=== PATIENT | female | born 1955 | race Caucasian/White ===

== ENCOUNTER 2020-07-01 16:07 | Inpatient (IN) | payer MEDICARE, OTHER ==
[~2020-07-01] VITALS: Ht 160 cm; Wt 74.8 kg
[2020-07-01 19:15] VITALS: BP 102/39
[2020-07-01] MEDS ORDERED: Z GUARD REMEDY PASTE 57 GM TUBE TOP PRN (19:30)
[2020-07-01] MEDS ORDERED: PARO-64 PO (20:07)
[2020-07-01] MEDS ORDERED: ACET-2154 PO (20:07)
[2020-07-01] MEDS ORDERED: SENN-261 PO (20:07)
[2020-07-01] MEDS ORDERED: LORA-258 PO (20:07)
[2020-07-01] MEDS ORDERED: SIMV-46 PO (20:07)
[2020-07-01] MEDS ORDERED: ERGO800011 (20:07)
[2020-07-01] MEDS ORDERED: CYCL10TA9 PO (20:07)
[2020-07-01] MEDS ORDERED: LISI-782 PO (20:07)
[2020-07-01] MEDS ORDERED: OXYC5TAB3 PO (20:07)
[2020-07-01] MEDS ORDERED: OMEP40CA13 PO (20:07)
[2020-07-01] MEDS ORDERED: ASPI81TA31 PO (20:07)
[2020-07-01] MEDS ORDERED: ONDA4TAB11 PO (20:07)
[2020-07-01] MEDS ORDERED: BISA10SU61 RC (20:07)
[2020-07-01] MEDS ORDERED: DOCU100C36 PO (20:07)
--- NOTE | 2020-07-02 00:17 | NUR ---
received from [facility] a 64 yr old female with admitting diagnosis of S/P decompression L3_s1 /L3-L4 fusion on 06/27/[address] Suarez.AAOx4 Needs attended. OOB to the BR with walker. Hx of herniated disc, chronic back pain, Osteoarthritis, hyperlipidemia, Lung ca, diverticulitis. Patient also was COVID(+) on 04/19 and PCR (-) on 06/26/20 Lower back dressing clean dry and intact. Refused to have dressing checked for photo. Skin intact. Continent of bowel and bladder. BM(07/01) Patient WBAT. Dr Drummond aware of patient's admission. VSS. Dr Chase also aware. Allergies to Cipro, chlorhexidine. Denies any pain at this time.
[2020-07-02 04:30] VITALS: BP 119/52
--- NOTE | 2020-07-02 06:28 | NUR ---
End of shift notes: Slept well throughout the shift. VSS. Still awaiting for her meds to get reconcile. Dr Drummond texted and called last night for patient's meds reconciliation. Not done yet. gang vibrator operator Nattie aware. OOB to the BR with walker with standby assist. Voiding ok. Will monitor.
[2020-07-02 08:38] VITALS: BP 101/48
[2020-07-02] MEDS ORDERED: ONDANSETRON ODT 4 MG TAB.RAPDIS SL PRN (11:30)
[2020-07-02] MEDS ORDERED: LORAZEPAM 0.5 MG TABLET PO PRN (11:30)
[2020-07-02] MEDS ORDERED: SENNOSIDES 1 TABLET PO PRN (11:30)
[2020-07-02] MEDS ORDERED: OXYCODONE HCL 5 MG TABLET PO PRN (11:30)
[2020-07-02] MEDS ORDERED: CYCLOBENZAPRINE HCL 10 MG TABLET PO PRN (11:30)
[2020-07-02] MEDS ORDERED: BISACODYL 10 MG SUPP.RECT RC PRN (11:30)
[2020-07-02] MEDS: LISINOPRIL 5 MG TABLET PO SCH (12:00)
[2020-07-02] MEDS: ASPIRIN 81 MG TAB.CHEW PO SCH (12:03)
[2020-07-02] MEDS: DOCUSATE SODIUM 100 MG CAPSULE PO PRN ×2 (12:03→17:53)
[2020-07-02 15:32] VITALS: BP 110/52
[2020-07-02] MEDS: ACETAMINOPHEN 325 MG TABLET PO PRN ×2 (15:41→22:52)
[2020-07-02] MEDS: SIMVASTATIN 20 MG TABLET PO SCH (20:23)
[2020-07-02 20:30] VITALS: BP 129/56
[2020-07-03] VITALS (12 sets, daily range): BP systolic 102–128; BP diastolic 48–64
[2020-07-03] MEDS: PANTOPRAZOLE SODIUM 40 MG TABLET.DR PO SCH (06:06)
[2020-07-03 08:15] LABS: BASOPHILS % (AUTO) 0.4 % (0.0-2.0); EOSINOPHILS # (AUTO) 0.1 K/uL (0.0-0.7); EOSINOPHILS % (AUTO) 1.1 % (0.0-7.0); LYMPHOCYTES % (AUTO) 15.8 % (20.5-51.5); MEAN CORPUSCULAR HEMOGLOBIN 28.7 uug (24.7-32.8); MEAN CORPUSCULAR HGB CONC 35 g/dL (32.3-35.6); MEAN CORPUSCULAR VOLUME 83.4 fL (75.5-95.3); MONOCYTES # (AUTO) 0.5 K/uL (2.0-10.0); MONOCYTES % (AUTO) 8.7 % (0.0-11.0); NEUTROPHILS # (AUTO) 4.4 K/uL (1.8-8.9); PLATELET COUNT (AUTO) 217 K/uL (179-408)
[2020-07-03 08:18] LABS: CREATININE 0.6 mg/dL (0.6-1.3); POTASSIUM 3.4 mmol/L (3.5-5.1)
[2020-07-03] MEDS: ASPIRIN 81 MG TAB.CHEW PO SCH (08:37)
[2020-07-03] MEDS: PAROXETINE HCL 20 MG TABLET PO SCH (08:37)
[2020-07-03] MEDS: LISINOPRIL 5 MG TABLET PO SCH ×2 (08:38→08:41)
[2020-07-03] MEDS ORDERED: LISINOPRIL 5 MG TABLET PO SCH (09:00)
[2020-07-03 09:06] LABS: RED BLOOD CELL COUNT(AUTO) 2.34 MIL/uL (3.63-4.92)
[2020-07-03 09:07] LABS: HEMATOCRIT 19.5 % (31.2-41.9); HEMOGLOBIN 6.7 g/dL (10.9-14.3)
--- NOTE | 2020-07-03 10:02 | NUR ---
patient is alert, oriented x4, verbally responsive, no sob, resp even nonlabored, skin warm and dry to touch, saturating 95% at room air, able to tolerate ambulating to the bathroom with fww with stand by assist, however patient complained feeling too tired after physical therapy yesterday. no acute distress noted at this time.
[2020-07-03 10:45] LABS: EOSINOPHILS % (MANUAL) 2 % (0-8); LYMPHOCYTES % (MANUAL) 12 % (20-40); MONOCYTES % (MANUAL) 11 % (2-10); NEUTROPHILS % (MANUAL) 75 % (42-75)
[2020-07-03 11:23] LABS: *BILIRUBIN,URIN NEGATIVE (NEGATIVE); *BLOOD, URINE TRACE (NEGATIVE); *CLARITY,URINE CLEAR (CLEAR); *COLOR,URINE YELLOW (YELLOW); *KETONES,URINE NEGATIVE (NEGATIVE); LEUKOCYTE ESTERASE ,URINE NEGATIVE (NEGATIVE); NITRITE, URINE NEGATIVE (NEGATIVE); PH,URINE 7.5 (5.0-8.0); UGLUCOSE NEGATIVE (NEGATIVE)
[2020-07-03 11:33] LABS: RBC,URINE 0-3 /HPF (0-3); SQUAMOUS EPITHELIAL CELL,UR MANY /HPF (NONE SEEN); URINE AMORPHOUS PHOSPHATES MANY /HPF
[2020-07-03 11:34] LABS: BACTERIA,URINE MODERATE /HPF (NONE SEEN); MUCUS,URINE FEW /LPF (0-FEW)
[2020-07-03 12:05] LABS: HEMATOCRIT 20.3 % (31.2-41.9)
--- NOTE | 2020-07-03 13:00 | NUR ---
patient noted with pitting edema to both feet +3 pitting edema, dr rice is aware, encouraged to elevate legs as tolerated, will continue to monitor
--- NOTE | 2020-07-03 13:30 | NUR ---
patient gets on and off low grade temperature 99.[address] krystal garcia to transfuse blood.
--- NOTE | 2020-07-03 14:44 | NUR ---
patient is alert, oriented x4, gave the consent for blood transfusion, daughter Jackie made aware as well, daughter and patient both agreed for blood transfusion
--- NOTE | 2020-07-03 15:00 | NUR ---
patient is alert, oriented x4, no sob, resp even nonlabored, skin warm and dry to touch, patient denied any flank pain, denied itching, or any other symptoms, continue to monitor closely
--- NOTE | 2020-07-03 15:57 | NUR ---
patient is tolerating blood transfusing well, no crackles noted upon auscultation, patient denied any pain or itching, no sob, resp even nonlabored, no distress noted
[2020-07-03] MEDS ORDERED: POTASSIUM CHLORIDE 10 MEQ TAB.PRT.SR PO ONE (18:00)
[2020-07-03] MEDS: SIMVASTATIN 20 MG TABLET PO SCH (20:38)
--- NOTE | 2020-07-03 21:20 | NUR ---
Received pt resting in bed. AAO x4. No acute distress noted. Denies pain/ discomfort. Due med given as ordered. Assisted to the bathroom using walker, safely back in bed. Left wrist #20 IV hep lock, patent and intact. Safety measures maintained. Call light and personal items within reach. Will continue to monitor.
[2020-07-04 04:50] VITALS: BP 111/60
[2020-07-04] MEDS: PANTOPRAZOLE SODIUM 40 MG TABLET.DR PO SCH (06:07)
[2020-07-04 06:34] LABS: BASOPHILS % (AUTO) 0.5 % (0.0-2.0); EOSINOPHILS # (AUTO) 0.1 K/uL (0.0-0.7); EOSINOPHILS % (AUTO) 2.5 % (0.0-7.0); HEMATOCRIT 23.4 % (31.2-41.9); HEMOGLOBIN 7.8 g/dL (10.9-14.3); LYMPHOCYTES # (AUTO) 1.1 K/uL (20.0-40.0); LYMPHOCYTES % (AUTO) 20.3 % (20.5-51.5); MEAN CORPUSCULAR HGB CONC 34 g/dL (32.3-35.6); MEAN CORPUSCULAR VOLUME 83.5 fL (75.5-95.3); MONOCYTES # (AUTO) 0.6 K/uL (2.0-10.0); MONOCYTES % (AUTO) 12.1 % (0.0-11.0); NEUTROPHILS # (AUTO) 3.3 K/uL (1.8-8.9); NEUTROPHILS % (AUTO) 64.6 % (38.5-71.5); PLATELET COUNT (AUTO) 235 K/uL (179-408); WHITE BLOOD COUNT (AUTO) 5.2 K/uL (3.8-11.8)
[2020-07-04 06:48] LABS: CREATININE 0.6 mg/dL (0.6-1.3); MAGNESIUM 2.2 mg/dL (1.8-2.4); PHOSPHOROUS 2.7 mg/dL (2.5-4.9); POTASSIUM 4.1 mmol/L (3.5-5.1)
[2020-07-04 08:00] VITALS: BP 126/67
[2020-07-04] MEDS: PAROXETINE HCL 20 MG TABLET PO SCH (08:39)
[2020-07-04] MEDS: LISINOPRIL 5 MG TABLET PO SCH (08:40)
[2020-07-04] MEDS: ASPIRIN 81 MG TAB.CHEW PO SCH (08:40)
[2020-07-04 14:05] LABS: IRON, SERUM 9 ug/dL (50-175)
[2020-07-04 15:47] VITALS: BP 117/56
--- NOTE | 2020-07-04 18:30 | NUR ---
INDIVIDUALIZED PLAN OF CARE
--- NOTE | 2020-07-04 18:44 | NUR ---
urine culture result reported to dr rice, no orders for now, since patient is asymptomatic, no hematuria, patient denied any burning sensations, dysuria. started on ferrous sulphate as ordered.
--- NOTE | 2020-07-04 19:22 | NUR ---
incision site is clean and dry.
[2020-07-04 20:35] VITALS: BP 141/66
--- NOTE | 2020-07-04 21:38 | NUR ---
Received patient sitting in bed. Assisted to the bathroom using walker, safely assist back in bed AAO x4. No acute distress noted. Denies pain/ discomfort. Due med administered as ordered. Safety measures observed and maintained all time. Call light and personal items within reach. Will continue to monitor.
[2020-07-04] MEDS: SIMVASTATIN 20 MG TABLET PO SCH (21:46)
[2020-07-04] MEDS: FERROUS SULFATE 325 MG TABEC PO SCH (21:47)
[2020-07-05 05:22] VITALS: BP 121/66
--- NOTE | 2020-07-05 06:02 | NUR ---
Patient slept throughout the night comfortable, VSS, stand by seo assistant to bathroom with walker. Continue with current plan of care. Will endorse accordingly to AM shift
[2020-07-05] MEDS: PANTOPRAZOLE SODIUM 40 MG TABLET.DR PO SCH (06:26)
[2020-07-05 08:00] VITALS: BP 139/69
[2020-07-05] MEDS: FERROUS SULFATE 325 MG TABEC PO SCH ×2 (08:35→20:17)
[2020-07-05] MEDS: ASPIRIN 81 MG TAB.CHEW PO SCH (08:35)
[2020-07-05] MEDS: PAROXETINE HCL 20 MG TABLET PO SCH (08:36)
[2020-07-05] MEDS: LISINOPRIL 5 MG TABLET PO SCH (08:36)
--- NOTE | 2020-07-05 08:43 | NUR ---
Received pt sitting up in chair, A&Ox4, able to verbalize needs. No acute distress, no SOB. VSS at this time. Pt denies pain/discomfort at this time. Pt noted drinking water, tolerated well. Due medications given per order. Belongings and call light within reach, reinforced usage, pt verbalized understanding. Will continue to monitor.
[2020-07-05 09:33] LABS: BASOPHILS % (AUTO) 0.6 % (0.0-2.0); EOSINOPHILS # (AUTO) 0.1 K/uL (0.0-0.7); EOSINOPHILS % (AUTO) 2.6 % (0.0-7.0); HEMATOCRIT 25.9 % (31.2-41.9); HEMOGLOBIN 8.6 g/dL (10.9-14.3); LYMPHOCYTES % (AUTO) 21.8 % (20.5-51.5); MEAN CORPUSCULAR HEMOGLOBIN 27.9 uug (24.7-32.8); MEAN CORPUSCULAR HGB CONC 33 g/dL (32.3-35.6); MEAN CORPUSCULAR VOLUME 84.3 fL (75.5-95.3); MONOCYTES # (AUTO) 0.3 K/uL (2.0-10.0); MONOCYTES % (AUTO) 6.9 % (0.0-11.0); NEUTROPHILS % (AUTO) 68.1 % (38.5-71.5); PLATELET COUNT (AUTO) 313 K/uL (179-408); RED BLOOD CELL COUNT(AUTO) 3.08 MIL/uL (3.63-4.92); WHITE BLOOD COUNT (AUTO) 4.4 K/uL (3.8-11.8)
[2020-07-05 09:44] LABS: POTASSIUM 3.5 mmol/L (3.5-5.1)
[2020-07-05 09:49] LABS: CREATININE 0.7 mg/dL (0.6-1.3)
[2020-07-05] MEDS ORDERED: CEFTRIAXONE 1 G in IV DEXTROSE 5% 50 ML IV SCH (10:30)
--- NOTE | 2020-07-05 12:30 | NUR ---
Dr. Germain aware of pt's UA and UC results, per Dr. Germain, no treatment at this time as pt remains asymptomatic. Notified JUDICIAL CLERK Wade Santiago, who is in agreement at this time.
--- NOTE | 2020-07-05 13:31 | NUR ---
Pt's own medication found in room, Premarin vaginal cream. Medication put in pt's own medication enveloped and given to pharmacy. Dr. Germain made aware, per MD OK for pt to continue home medication.
[2020-07-05 14:00] VITALS: BP 117/66
[2020-07-05 20:08] VITALS: BP 135/58
[2020-07-05] MEDS: SIMVASTATIN 20 MG TABLET PO SCH (20:17)
--- NOTE | 2020-07-06 01:15 | NUR ---
Received pt resting in chair. AAO x4, able to make needs known. No acute distress noted. Denies pain/ discomfort. VSS. All due medications administered as scheduled and tolerated well. Assisted pt to the bathroom and back into bed. given as ordered. Safety precautions maintained. Needs attended to promptly. Incision intact and open to air. Call light and personal items within reach. Will continue to monitor throughout the night.
[2020-07-06 04:24] VITALS: BP 137/65
[2020-07-06] MEDS: PANTOPRAZOLE SODIUM 40 MG TABLET.DR PO SCH (06:01)
[2020-07-06 07:56] VITALS: BP 126/58
[2020-07-06] MEDS: FERROUS SULFATE 325 MG TABEC PO SCH ×2 (08:02→20:14)
[2020-07-06] MEDS: ASPIRIN 81 MG TAB.CHEW PO SCH (08:02)
[2020-07-06] MEDS: LISINOPRIL 5 MG TABLET PO SCH (08:02)
[2020-07-06] MEDS: PAROXETINE HCL 20 MG TABLET PO SCH (08:02)
[2020-07-06] MEDS: CALCIUM CARBONATE 500 MG TABLET PO SCH (08:02)
[2020-07-06 15:00] VITALS: BP 142/73
[2020-07-06 20:05] VITALS: BP 103/61
[2020-07-06] MEDS: SIMVASTATIN 20 MG TABLET PO SCH (20:14)
--- NOTE | 2020-07-06 21:15 | NUR ---
Patient awake in bed. c/o pain on the left side of incision area. Incision area, c/d/i. Patient given tylenol 650mg po prn for discomfort. Patient stated she feels like she over-worked herself in physical therapy today. Call light in reach, all needs attended. Will continue to monitor and assess.
[2020-07-06] MEDS: ACETAMINOPHEN 325 MG TABLET PO PRN (21:18)
[2020-07-07 04:33] VITALS: BP 121/60
[2020-07-07] MEDS: PANTOPRAZOLE SODIUM 40 MG TABLET.DR PO SCH (06:25)
--- NOTE | 2020-07-07 06:25 | NUR ---
Patient asleep in bed. Pt. asked not be woken up to be to be given Protonix. Will endorse to am shift. Pt. slept well throughout the night. All needs attended, will continue to monitor and assess.
[2020-07-07 07:58] VITALS: BP 128/68
[2020-07-07] MEDS: PAROXETINE HCL 20 MG TABLET PO SCH (08:27)
[2020-07-07] MEDS: ASPIRIN 81 MG TAB.CHEW PO SCH (08:27)
[2020-07-07] MEDS: CALCIUM CARBONATE 500 MG TABLET PO SCH (08:27)
[2020-07-07] MEDS: FERROUS SULFATE 325 MG TABEC PO SCH ×2 (08:27→20:09)
[2020-07-07] MEDS: LISINOPRIL 5 MG TABLET PO SCH (08:28)
--- NOTE | 2020-07-07 09:40 | NUR ---
Received pt in restroom, pt stated had 1 BM. Assisted pt safely to chair for breakfast. Pt A&Ox4. No acute distress, no SOB. VSS. Pt denies pain/discomfort at this time. Due medications given per order, no a/r noted. Pt declined Protonix today, per pt, "tomorrow". Safety measures and fall precautions in place. Belongings and call light within reach. Will continue to monitor.
--- NOTE | 2020-07-07 10:00 | NUR ---
Pt's own medication found at bedside, Refresh Artificial Tears. Explained hospital policy to pt, pt verbalized understanding, medication removed and given to pharmacy. Dr. Reyes ARAMBULA made aware of pt's request to continue home medication, MD in agreement, new order in place. Continue to monitor.
[2020-07-07] MEDS: PREMARIN VAG VG PRN ×2 (11:16→20:11)
[2020-07-07 12:45] VITALS: BP 117/71
--- NOTE | 2020-07-07 12:45 | NUR ---
Pt stated feeling tired and somewhat weak, per pt she may have "overworked" herself at therapy yesterday. Pt requested vital signs taken, respected pt's request, VSS: BP 117/71, HR 85, O2 saturation 100% on RA, RR 18, temp 98.4. Pt denied pain at this time. Pt denied dizziness, lightheadedness, headache. Dr Dave at bedside, no new orders. Will continue to monitor.
[2020-07-07 15:05] VITALS: BP 109/51
--- NOTE | 2020-07-07 17:03 | NUR ---
Pt stated feeling "better" at this time. VSS. No acute distress, no SOB. Pt continues to deny pain, declines pain medication at this time. Assisted pt safely to chair. LSO brace in place when pt OOB. Per pt, she is ready for dinner.
--- NOTE | 2020-07-07 18:39 | NUR ---
EOSS: Pt in room, talking on phone, no acute distress. VSS. Pt denies pain/discomfort. All needs met at this time. Due medications given per order, no a/r noted. Safety measures and fall precautions maintained. Call light and belongings within reach. Pt asks not to be woken up for am Protonix until after 0700. Will endorse to director of outside sales nurse.
[2020-07-07] MEDS: SIMVASTATIN 20 MG TABLET PO SCH (20:10)
[2020-07-07 20:34] VITALS: BP 139/55
[2020-07-08 04:30] VITALS: BP 115/59
[2020-07-08] MEDS: PANTOPRAZOLE SODIUM 40 MG TABLET.DR PO SCH (06:14)
[2020-07-08 07:11] LABS: BASOPHILS # (AUTO) 0.1 K/uL (0.0-8.0); EOSINOPHILS # (AUTO) 0.1 K/uL (0.0-0.7); HEMATOCRIT 25.7 % (31.2-41.9); HEMOGLOBIN 8.6 g/dL (10.9-14.3); LYMPHOCYTES # (AUTO) 1.2 K/uL (20.0-40.0); LYMPHOCYTES % (AUTO) 21.6 % (20.5-51.5); MEAN CORPUSCULAR HEMOGLOBIN 27.8 uug (24.7-32.8); MEAN CORPUSCULAR HGB CONC 34 g/dL (32.3-35.6); MEAN CORPUSCULAR VOLUME 83.2 fL (75.5-95.3); MONOCYTES # (AUTO) 0.6 K/uL (2.0-10.0); MONOCYTES % (AUTO) 10.5 % (0.0-11.0); NEUTROPHILS # (AUTO) 3.5 K/uL (1.8-8.9); NEUTROPHILS % (AUTO) 64.9 % (38.5-71.5); PLATELET COUNT (AUTO) 361 K/uL (179-408); RED BLOOD CELL COUNT(AUTO) 3.09 MIL/uL (3.63-4.92); WHITE BLOOD COUNT (AUTO) 5.4 K/uL (3.8-11.8)
[2020-07-08 07:29] LABS: THYROID STIMULATING HORMONE 1.473 mIU/mL (0.358-3.740)
[2020-07-08 08:00] VITALS: BP 126/67
[2020-07-08 08:08] LABS: BILIRUBIN,TOTAL 0.2 mg/dL (0.2-1.0); CREATININE 0.6 mg/dL (0.6-1.3); MAGNESIUM 2.3 mg/dL (1.8-2.4); PHOSPHOROUS 3.7 mg/dL (2.5-4.9); POTASSIUM 4.2 mmol/L (3.5-5.1); TOTAL PROTEIN, SERUM 6.2 g/dL (6.4-8.2)
[2020-07-08] MEDS: PAROXETINE HCL 20 MG TABLET PO SCH (09:01)
[2020-07-08] MEDS: ASPIRIN 81 MG TAB.CHEW PO SCH (09:01)
[2020-07-08] MEDS: FERROUS SULFATE 325 MG TABEC PO SCH ×2 (09:01→20:24)
[2020-07-08] MEDS: CALCIUM CARBONATE 500 MG TABLET PO SCH (09:01)
[2020-07-08] MEDS: LISINOPRIL 5 MG TABLET PO SCH (09:02)
[2020-07-08] MEDS: PREMARIN VAG VG PRN (09:03)
--- NOTE | 2020-07-08 09:34 | NUR ---
Received pt ambulating back from restroom, assisted pt safely to edge of bed for breakfast. Pt A&Ox4, able to verbalize needs. No acute distress. VSS. Pt denies pain at this time. Due medications given per order, no a/r noted. Pt stated feeling "much better" this am. Safety measures and fall precautions in place. Belongings and call light within reach. Will continue to monitor.
--- NOTE | 2020-07-08 12:05 | NUR ---
DONALDO Santiago at bedside, reviewed labs, no new orders at this time. Continue to monitor.
[2020-07-08 16:00] VITALS: BP 115/64
--- NOTE | 2020-07-08 19:35 | NUR ---
In bed, awake, alert and oriented x 3, very pleasant, calm, and cooperative. Ambulatory to the BR with FWW with minimal assist. Mid back incision site clean and dry, left open to air. No complaint presented at this time. Continue care as planned.
--- NOTE | 2020-07-08 19:39 | NUR ---
INTERDISCIPLINARY TEAM CONFERENCE
[2020-07-08 20:00] VITALS: BP 103/53
[2020-07-08] MEDS: SIMVASTATIN 20 MG TABLET PO SCH (20:24)
[2020-07-09 04:00] VITALS: BP 132/63
--- NOTE | 2020-07-09 05:44 | NUR ---
Shift End Report: VS stable. Slept well. All needs attended and met. No complaint presented. No significant event reported all night. Continue current rehab plan of care.
[2020-07-09] MEDS: PANTOPRAZOLE SODIUM 40 MG TABLET.DR PO SCH (06:40)
[2020-07-09 08:33] VITALS: BP 108/65
[2020-07-09] MEDS: FERROUS SULFATE 325 MG TABEC PO SCH ×2 (08:35→20:04)
[2020-07-09] MEDS: PAROXETINE HCL 20 MG TABLET PO SCH (08:35)
[2020-07-09] MEDS: CALCIUM CARBONATE 500 MG TABLET PO SCH (08:35)
[2020-07-09] MEDS: ASPIRIN 81 MG TAB.CHEW PO SCH (08:35)
[2020-07-09] MEDS: LISINOPRIL 5 MG TABLET PO SCH (08:35)
[2020-07-09 16:00] VITALS: BP 124/60
--- NOTE | 2020-07-09 19:35 | NUR ---
Ambulating to the bathroom with FWW during initial rounds. No SOB/SOBOE presented. Presented complaint that Left leg still with on and off numbness and that MD already aware and told her that it will go away as days goes on. Lower back incision dry and intact, left open to air. Safety measures and fall prevention maintained. Continue care as planned.
[2020-07-09 20:00] VITALS: BP 113/58
[2020-07-09] MEDS: SIMVASTATIN 20 MG TABLET PO SCH (20:04)
[2020-07-10 04:00] VITALS: BP 118/62
[2020-07-10] MEDS: PANTOPRAZOLE SODIUM 40 MG TABLET.DR PO SCH (06:22)
--- NOTE | 2020-07-10 06:31 | NUR ---
Shift End Report: Uneventful night. No significant changes reported. All needs attended and met. VS stable.
--- NOTE | 2020-07-10 07:30 | NUR ---
received patient aox4, patient is sitting in her bed, patient cheerful mood, denies pain, no sign of any distress, patient seen eating her breakfast and able to tolerate her medication and therapy, will continue monitor
[2020-07-10 08:00] VITALS: BP 122/62
[2020-07-10] MEDS: ASPIRIN 81 MG TAB.CHEW PO SCH (08:28)
[2020-07-10] MEDS: FERROUS SULFATE 325 MG TABEC PO SCH ×2 (08:29→20:51)
[2020-07-10] MEDS: CALCIUM CARBONATE 500 MG TABLET PO SCH (08:29)
[2020-07-10] MEDS: PAROXETINE HCL 20 MG TABLET PO SCH (08:29)
[2020-07-10] MEDS: LISINOPRIL 5 MG TABLET PO SCH (08:29)
[2020-07-10 15:36] VITALS: BP 124/59
--- NOTE | 2020-07-10 18:57 | NUR ---
pt a/o x4, on room air, no signs of distress, no reports fo pain noted at this time. pt ambulatory with walker, pt has BRP, pt on cardiac diet, pt has appt with Dr. Suarez 07/14/2020. bed in low and locked position, call light within reach, safety precautions in place, will endorse to oncoming nurse.
--- NOTE | 2020-07-10 20:15 | NUR ---
Patient alert x4. Denies pain at this time. On RA.No s/s of distress noted. Ambulates to bathroom with the use of walker.Applied back brace.Tolerated well.Lower back Surgical site clean and dry.No drainage noted. Call light with in reach.Continue safety measures. VSs.
[2020-07-10 20:25] VITALS: BP 117/68
[2020-07-10] MEDS: SIMVASTATIN 20 MG TABLET PO SCH (20:52)
[2020-07-11 05:42] VITALS: BP 113/59
[2020-07-11] MEDS: PANTOPRAZOLE SODIUM 40 MG TABLET.DR PO SCH (06:21)
--- NOTE | 2020-07-11 07:20 | NUR ---
Received sitting on the chair, c/o of some leg pain stated she may have overdone it at therapy yesterday. No resp distress noted. Said pain is manageable at this time and will let nurse know if she needs pain pill. Patient is cooperative. Will continue to monitor.
[2020-07-11 08:00] VITALS: BP 127/44
[2020-07-11] MEDS: ASPIRIN 81 MG TAB.CHEW PO SCH (08:09)
[2020-07-11] MEDS: PAROXETINE HCL 20 MG TABLET PO SCH (08:09)
[2020-07-11] MEDS: CALCIUM CARBONATE 500 MG TABLET PO SCH (08:09)
[2020-07-11] MEDS: FERROUS SULFATE 325 MG TABEC PO SCH ×2 (08:09→20:11)
[2020-07-11] MEDS: LISINOPRIL 5 MG TABLET PO SCH (08:11)
[2020-07-11] MEDS: ACETAMINOPHEN 325 MG TABLET PO PRN ×2 (08:16→23:05)
--- NOTE | 2020-07-11 09:35 | NUR ---
Patient given tylenol per request verbalized relief. Said she'll take it easy today refused therapy.
--- NOTE | 2020-07-11 11:27 | NUR ---
Patient requested for air mattress. Informed Dr. Chambers he said ok, noted and carried out. Patient aware. Addendum: 07/11/20 at 1131 by RICHI LUQUE RN Noted spine surgical site intact. No signs of redness, swelling or infection noted. Denies pain.
[2020-07-11 16:00] VITALS: BP 136/73
--- NOTE | 2020-07-11 19:00 | NUR ---
Patient sitting in chair. No resp distress. No further complaints of pain. Showered with OT this afternoon. Spine surgical site intact. No swelling or redness noted. Patient is cooperative. Needs attended. Safety measures in place. Call light within reach.
--- NOTE | 2020-07-11 19:30 | NUR ---
Received pt laying in bed, A&Ox4, verbally responsive, able to make needs known. Denies any pain or discomfort. No s/s of respiratory distress. Safety measures initiated, call light within reach, will continue to monitor.
[2020-07-11 19:49] VITALS: BP 110/64
[2020-07-11] MEDS: SIMVASTATIN 20 MG TABLET PO SCH (20:11)
[2020-07-12 05:20] VITALS: BP 101/56
--- NOTE | 2020-07-12 06:28 | NUR ---
Pt asleep in bed, easily arousable to name. No signs of respiratory distress. Pain medication given as needed. Medications tolerated well. Incision site intact, no s/s of infection. Pt aware of occult blood stool test, no stool sample given yet. Will endorse to day shift nurse. Safety measures maintained at all times, call light within reach, all needs attended.
[2020-07-12] MEDS: PANTOPRAZOLE SODIUM 40 MG TABLET.DR PO SCH (07:16)
--- NOTE | 2020-07-12 07:24 | NUR ---
Patient received sitting on the chair praying. Alert and oriented able to make needs known. C/o slight pain on left leg but is manageable and refused pain medication at this time. Sx site intact. No s/sx of swelling or infection. Call light in reach. Will continue to monitor.
[2020-07-12] MEDS: FERROUS SULFATE 325 MG TABEC PO SCH ×2 (08:08→20:04)
[2020-07-12] MEDS: PAROXETINE HCL 20 MG TABLET PO SCH (08:08)
[2020-07-12] MEDS: LISINOPRIL 5 MG TABLET PO SCH (08:08)
[2020-07-12] MEDS: ASPIRIN 81 MG TAB.CHEW PO SCH (08:08)
[2020-07-12 08:09] VITALS: BP 107/62
[2020-07-12] MEDS: CALCIUM CARBONATE 500 MG TABLET PO SCH (08:11)
[2020-07-12 09:14] LABS: *OCCULT BLOOD STOOL NEGATIVE (NEGATIVE)
[2020-07-12 15:42] VITALS: BP 11/64
[2020-07-12 18:46] LABS: *BILIRUBIN,URIN NEGATIVE (NEGATIVE); *CLARITY,URINE CLEAR (CLEAR); *COLOR,URINE LIGHT YELLOW (YELLOW); *KETONES,URINE NEGATIVE (NEGATIVE); *UROBILINOGEN,URINE 0.2 E.U./dl (NORMAL); LEUKOCYTE ESTERASE ,URINE NEGATIVE (NEGATIVE); NITRITE, URINE NEGATIVE (NEGATIVE); PH,URINE 6.5 (5.0-8.0); UGLUCOSE NEGATIVE (NEGATIVE)
[2020-07-12 18:57] LABS: *BLOOD, URINE TRACE LYSED (NEGATIVE)
--- NOTE | 2020-07-12 19:12 | NUR ---
Alert and oriented, ambulatory. Denies pain. No respiratory distress. Needs attended. Safety measures maintained. Endorsed accordingly.
[2020-07-12 19:34] LABS: BACTERIA,URINE NONE SEEN /HPF (NONE SEEN); SQUAMOUS EPITHELIAL CELL,UR FEW /HPF (NONE SEEN); WBC,URINE 0-3 /HPF (0-3)
[2020-07-12] MEDS: SIMVASTATIN 20 MG TABLET PO SCH (20:04)
[2020-07-12 20:19] VITALS: BP 111/51
[2020-07-13] MEDS: PANTOPRAZOLE SODIUM 40 MG TABLET.DR PO SCH (06:06)
--- NOTE | 2020-07-13 06:25 | NUR ---
Pt slept throughout the night, denies pain or SOB. No acute distress noted. Pt able to ambulate with FWW to bathroom on her own. Bed is locked and in lowest position, call light in reach. Tolerated all given medications. No other issues or concerns at this time, will endorse to day shift.
[2020-07-13 07:30] VITALS: BP 120/64
[2020-07-13] MEDS: LISINOPRIL 5 MG TABLET PO SCH (08:46)
[2020-07-13] MEDS: PAROXETINE HCL 20 MG TABLET PO SCH (08:46)
[2020-07-13] MEDS: ASPIRIN 81 MG TAB.CHEW PO SCH (08:46)
[2020-07-13] MEDS: FERROUS SULFATE 325 MG TABEC PO SCH ×2 (08:46→20:00)
[2020-07-13] MEDS: CALCIUM CARBONATE 500 MG TABLET PO SCH (08:52)
[2020-07-13] MEDS: LIDOCAINE 5% PATCH TD SCH (09:00)
[2020-07-13] MEDS: CELECOXIB 100 MG CAPSULE PO SCH ×2 (09:28→20:00)
--- NOTE | 2020-07-13 18:30 | NUR ---
Patient remains alert, oriented x 4, not in any form of distress, on room air, ambulatory with walker. She denies any pain or discomfort at this time. Assisted with her needs. Call light and frequently used items placed within patient's reach. Patient refused her morning due lidocaine patch as ordered, explained risks and benefits but patient still refused. Will continue to monitor and will endorse accordingly.
[2020-07-13] MEDS: SIMVASTATIN 20 MG TABLET PO SCH (20:00)
[2020-07-13 20:21] VITALS: BP 126/66
--- NOTE | 2020-07-14 05:31 | NUR ---
Pt slept throughout the night. Denies pain or SOB. Refused 0400H vitals, states that she is "healthy." Pt otherwise very pleasant and able to make needs known. Tolerated all medications well. Able to ambulate well with FWW. Scheduled to be picked up today by [facility] at 1345H to go to meet with Dr. Suarez. Bed is locked and in lowest position, call light within reach. No other issues or concerns at this time, will endorse to day shift.
[2020-07-14] MEDS: PANTOPRAZOLE SODIUM 40 MG TABLET.DR PO SCH (06:18)
[2020-07-14 06:26] LABS: BASOPHILS # (AUTO) 0.1 K/uL (0.0-8.0); BASOPHILS % (AUTO) 1.2 % (0.0-2.0); EOSINOPHILS # (AUTO) 0.1 K/uL (0.0-0.7); EOSINOPHILS % (AUTO) 2.4 % (0.0-7.0); HEMATOCRIT 27.7 % (31.2-41.9); HEMOGLOBIN 9.4 g/dL (10.9-14.3); LYMPHOCYTES # (AUTO) 1.3 K/uL (20.0-40.0); LYMPHOCYTES % (AUTO) 25.1 % (20.5-51.5); MEAN CORPUSCULAR HEMOGLOBIN 27.7 uug (24.7-32.8); MEAN CORPUSCULAR HGB CONC 34 g/dL (32.3-35.6); MONOCYTES # (AUTO) 0.5 K/uL (2.0-10.0); MONOCYTES % (AUTO) 10.2 % (0.0-11.0); NEUTROPHILS # (AUTO) 3.1 K/uL (1.8-8.9); NEUTROPHILS % (AUTO) 61.1 % (38.5-71.5); PLATELET COUNT (AUTO) 330 K/uL (179-408); RED BLOOD CELL COUNT(AUTO) 3.38 MIL/uL (3.63-4.92); WHITE BLOOD COUNT (AUTO) 5.1 K/uL (3.8-11.8)
[2020-07-14 06:40] LABS: BILIRUBIN,TOTAL 0.2 mg/dL (0.2-1.0); CREATININE 0.6 mg/dL (0.6-1.3); MAGNESIUM 2.3 mg/dL (1.8-2.4); PHOSPHOROUS 3.9 mg/dL (2.5-4.9); POTASSIUM 4.2 mmol/L (3.5-5.1); TOTAL PROTEIN, SERUM 6.5 g/dL (6.4-8.2)
[2020-07-14] MEDS: CALCIUM CARBONATE 500 MG TABLET PO SCH (09:00)
[2020-07-14] MEDS: LIDOCAINE 5% PATCH TD SCH (09:00)
[2020-07-14] MEDS: ASPIRIN 81 MG TAB.CHEW PO SCH (10:24)
[2020-07-14] MEDS: PAROXETINE HCL 20 MG TABLET PO SCH (10:24)
[2020-07-14] MEDS: FERROUS SULFATE 325 MG TABEC PO SCH ×2 (10:25→20:23)
[2020-07-14] MEDS: CELECOXIB 100 MG CAPSULE PO SCH ×2 (10:26→20:25)
[2020-07-14] MEDS: LISINOPRIL 5 MG TABLET PO SCH (10:32)
--- NOTE | 2020-07-14 13:50 | NUR ---
Patient picked up by [facility] transportation for appointment with Dr. Suarez. Patient is alert, oriented x 4, not in any form of distress, vital signs stable. She denies any pain or discomfort.
--- NOTE | 2020-07-14 15:00 | NUR ---
Patient back from appointment. Patient remains alert, oriented x 3, no complain of any pain or discomfort, vital signs stable. No new skin issues. No new orders from Dr. Suarez.
[2020-07-14] MEDS: ACETAMINOPHEN 325 MG TABLET PO PRN (15:28)
[2020-07-14 15:37] VITALS: BP 122/61
[2020-07-14] MEDS: SIMVASTATIN 20 MG TABLET PO SCH (20:23)
[2020-07-14 21:00] VITALS: BP 114/63
--- NOTE | 2020-07-15 00:44 | NUR ---
aaox4 ambulates with walker. Voiding freely. Needs attended. Kept comfortable. Possible discharge to home in am. VSS. Will monitor patient.
[2020-07-15] MEDS: PANTOPRAZOLE SODIUM 40 MG TABLET.DR PO SCH (06:26)
[2020-07-15 07:32] VITALS: BP 150/82
[2020-07-15] MEDS: ASPIRIN 81 MG TAB.CHEW PO SCH (08:39)
[2020-07-15] MEDS: LISINOPRIL 5 MG TABLET PO SCH (08:40)
[2020-07-15] MEDS: CALCIUM CARBONATE 500 MG TABLET PO SCH ×2 (08:40→08:53)
[2020-07-15] MEDS: FERROUS SULFATE 325 MG TABEC PO SCH (08:40)
[2020-07-15] MEDS: PAROXETINE HCL 20 MG TABLET PO SCH (08:40)
[2020-07-15] MEDS: PREMARIN VAG VG PRN (08:49)
[2020-07-15] MEDS: CELECOXIB 100 MG CAPSULE PO SCH (08:51)
[2020-07-15] MEDS: LIDOCAINE 5% PATCH TD SCH (09:00)
[2020-07-15 13:20] VITALS: BP 117/74
--- NOTE | 2020-07-15 14:41 | NUR ---
Pt A&Ox4, no acute distress, no reports of pain/discomfort at this time, VSS. Pt to be discharged home with [facility] today. Pt aware and willing. Per pt, excited to go home. Belongings inventoried, belongings list signed, pt denied missing items. Per pt, received 2 doses of PNA vaccine, does not recall dates, will follow up with PCP. Per pt, received flu vaccine this season, December 2019.
--- NOTE | 2020-07-15 16:27 | NUR ---
DISCHARGE NOTE: Pt remains in stable condition, no acute distress. All needs attended to. Discharge instructions provided to pt, pt verbalized understanding. Discharge prescriptions and TMS provided to pt. Assisted pt safely to lobby via WC at 1625. Pt picked up via private transportation with son-in-law Bassam. Pt assisted safely into vehicle.
== END 2020-07-15 16:39 | disposition home health service (06) | DRG 559 ==
PROVIDERS: ADMIT Physical Medicine & Rehabilitation Pain Medicine; ATTEND Physical Medicine & Rehabilitation Pain Medicine
DX: Z47.89 Encounter for other orthopedic aftercare (principal); E43 Unspecified severe protein-calorie malnutrition; D62 Acute posthemorrhagic anemia; N39.0 Urinary tract infection, site not specified; E78.5 Hyperlipidemia, unspecified; F32.9 Major depressive disorder, single episode, unspecified; G89.29 Other chronic pain; I10 Essential (primary) hypertension; K21.9 Gastro-esophageal reflux disease without esophagitis; K59.00 Constipation, unspecified; M43.16 Spondylolisthesis, lumbar region; M48.062 Spinal stenosis, lumbar region with neurogenic claudication; M48.02 Spinal stenosis, cervical region; Z85.118 Personal history of other malignant neoplasm of bronchus and lung; M19.90 Unspecified osteoarthritis, unspecified site; B96.20 Unspecified Escherichia coli [E. coli] as the cause of diseases classified elsewhere; D50.9 Iron deficiency anemia, unspecified; Z88.1 Allergy status to other antibiotic agents; Z88.3 Allergy status to other anti-infective agents; F41.9 Anxiety disorder, unspecified; R73.9 Hyperglycemia, unspecified; R19.5 Other fecal abnormalities
CPT/HCPCS: 36415; 70030-TC; 82378; 83550; 83735; 84100; 84443; 85018; 85025; 86850; 86900; 86901; 86920; 87077; 87086; J7050; P9016-BL; P9021